=== PATIENT | male | born 1955 | race Caucasian/White ===

== ENCOUNTER 2017-06-30 17:51 | Emergency (ER) | payer BC ==
[~2017-06-30] VITALS: Ht 177.8 cm; Wt 86.2 kg
[2017-06-30] MEDS ORDERED: LIDOCAINE HCL/MPF 1% 30 ML VIAL IJ ONE (18:09)
[2017-06-30] MEDS ORDERED: LIDOCAINE HCL/PF 1% 30 ML VIAL TP ONE (18:30)
[2017-06-30] MEDS ORDERED: HYDROCODONE/APAP 5/325MG 1 EACH TABLET PO ONE (18:30)
[2017-06-30] MEDS ORDERED: TDAP [DIPH/PERTUSSIS/TET] 0.5 ML VIAL IM ONE ×2 (18:30→18:35)
--- NOTE | 2017-06-30 18:30 | NUR ---
PT MEDICATED ORDERED.
[2017-06-30] MEDS ORDERED: HYDROCODONE/APAP 5/325MG 1 EACH TABLET ONE (18:35)
--- NOTE | 2017-06-30 18:40 | NUR ---
PA AT BS FOR WOUND PROCEDURE.
--- NOTE | 2017-06-30 19:10 | NUR ---
PT REPORT RECIEVED FROM NICHOLE RN, ISMAEL CARPENTER IN ROOM,PT A/OX4 BREATHING EFFORTLESSLY ON ROOM AIR, PT STATES HE IS FEELING ALOT BETTER, PT DENIES PAIN AT THIS TIME, PT FRIEND AT BEDSIDE, WILL CONTINUE TO MONITOR.
[2017-06-30 19:33] VITALS: BP 142/88
== END 2017-06-30 19:34 | disposition home or self-care (01) ==
LOC: ER 18:10
DX: S61.215A Laceration without foreign body of left ring finger without damage to nail, initial encounter (principal); S61.217A Laceration without foreign body of left little finger without damage to nail, initial encounter; S67.22XA Crushing injury of left hand, initial encounter; W22.8XXA Striking against or struck by other objects, initial encounter; Y93.89 Activity, other specified; Y92.89 Other specified places as the place of occurrence of the external cause; Y99.8 Other external cause status
CPT/HCPCS: 12002; 73130; 90471; 90715; 99284; A4606; A6403 ×2; J3490 ×2; Z7610